=== PATIENT | male | born 1995 | race Two or more races ===

== ENCOUNTER 2017-12-08 08:13 | Outpatient (CLI) | payer OTHER | END 2017-12-08 23:59 | disposition home or self-care (01) | LOC: MSC 08:13 | PROVIDERS: ATTEND Anesthesiology | DX: S33.5XXD Sprain of ligaments of lumbar spine, subsequent encounter (principal); S13.4XXD Sprain of ligaments of cervical spine, subsequent encounter; M54.40 Lumbago with sciatica, unspecified side; M54.16 Radiculopathy, lumbar region; M62.838 Other muscle spasm; M54.2 Cervicalgia; V43.52XD Car driver injured in collision with other type car in traffic accident, subsequent encounter; Y92.411 Interstate highway as the place of occurrence of the external cause; Y93.9 Activity, unspecified; Y99.9 Unspecified external cause status ==